=== PATIENT | female | born 1990 | race Caucasian/White ===

== ENCOUNTER → 2018-09-14 12:29 | Outpatient (CLI) | payer MEDICAID ==
[2011-06-10 06:39] VITALS: BMI 36.0
== END | disposition home or self-care (01) ==
LOC: D.LDO 12:29
DX: O26.893 Other specified pregnancy related conditions, third trimester (principal); Z3A.37 37 weeks gestation of pregnancy; R10.9 Unspecified abdominal pain

== ENCOUNTER → 2018-09-16 12:30 | Outpatient (CLI) | payer MEDICAID ==
[2011-06-10 06:39] VITALS: BMI 36.0
[~2018-09-16 12:30] MED LIST: BUPRENORPHINE HC8 MG SL; CYCLOBENZAPRINE10 MG; MOTRIN600 MG PO; ZOFRAN ODT4 MG/UDTAB PO
[2018-09-16 13:56] LABS: APPEARANCE CLEAR (CLEAR); BILIRUBIN NEGATIVE (NEGATIVE); COLOR STRAW (YELLOW); GLUCOSE NEGATIVE (NEGATIVE); KETONE NEGATIVE (NEGATIVE); NITRITE NEGATIVE (NEGATIVE); PROTEIN NEGATIVE (NEGATIVE); SPECIFIC GRAVITY 1.005 (1.005-1.020); UROBILINOGEN NORMAL (NORMAL)
[2018-09-16 13:58] LABS: BACTERIA MODERATE /hpf (NONE SEEN); RED CELLS - URINE RARE /hpf (0-5)
[2018-09-16 14:22] LABS: UDS - AMPHET NEGATIVE QUAL (NEGATIVE); UDS - BARB NEGATIVE QUAL (NEGATIVE); UDS - BENZO NEGATIVE QUAL (NEGATIVE); UDS - COCAINE NEGATIVE QUAL (NEGATIVE); UDS - OPIATE NEGATIVE QUAL (NEGATIVE); UDS - PCP NEGATIVE QUAL (NEGATIVE); UDS - THC POSITIVE QUAL (NEGATIVE)
[2018-09-22 11:01] VITALS: BMI 27.4
[2018-09-23 08:19] LABS: UDSC - AMPHET Negative ng/mL (Cutoff=1000); UDSC - BARB Negative ng/mL (Cutoff=300); UDSC - BENZO Negative ng/mL (Cutoff=300); UDSC - COC Negative ng/mL (Cutoff=300); UDSC - METH Negative ng/mL (Cutoff=300); UDSC - OPIATES Negative ng/mL (Cutoff=300); UDSC - PCP Negative ng/mL (Cutoff=25); UDSC - PROPOXY Negative ng/mL (Cutoff=300); UDSC - THC Positive (Cutoff=50)
== END | disposition home or self-care (01) ==
LOC: D.LDO 12:30
PROVIDERS: Obstetrics & Gynecology
DX: O26.893 Other specified pregnancy related conditions, third trimester (principal); Z3A.37 37 weeks gestation of pregnancy

== ENCOUNTER 2018-09-19 02:28 | Outpatient (CLI) | payer MEDICAID ==
[2011-06-10 06:39] VITALS: BMI 36.0
[2018-09-19 03:01] LABS: APPEARANCE CLEAR (CLEAR); BILIRUBIN NEGATIVE (NEGATIVE); COLOR STRAW (YELLOW); GLUCOSE NEGATIVE (NEGATIVE); KETONE NEGATIVE (NEGATIVE); NITRITE NEGATIVE (NEGATIVE); PROTEIN NEGATIVE (NEGATIVE); SPECIFIC GRAVITY 1.005 (1.005-1.020); UROBILINOGEN NORMAL (NORMAL)
[2018-09-19 03:04] LABS: UDS - AMPHET NEGATIVE QUAL (NEGATIVE); UDS - BARB NEGATIVE QUAL (NEGATIVE); UDS - BENZO NEGATIVE QUAL (NEGATIVE); UDS - COCAINE NEGATIVE QUAL (NEGATIVE); UDS - OPIATE NEGATIVE QUAL (NEGATIVE); UDS - PCP NEGATIVE QUAL (NEGATIVE); UDS - THC POSITIVE QUAL (NEGATIVE)
[2018-09-22 11:01] VITALS: BMI 27.4
== END 2018-09-19 05:33 | disposition home or self-care (01) ==
LOC: D.LDO 02:28
PROVIDERS: Obstetrics & Gynecology
DX: O26.893 Other specified pregnancy related conditions, third trimester (principal); Z3A.37 37 weeks gestation of pregnancy

== ENCOUNTER 2018-09-21 10:36 | Inpatient (IN) | payer MEDICAID ==
[~2018-09-21] VITALS: Ht 160 cm; Wt 70.3 kg
[2018-09-21] MEDS ORDERED: CYCLOBENZAPRINE10 MG (11:54)
[2018-09-21] MEDS ORDERED: BUPRENORPHINE HC8 MG SL (11:55)
[2018-09-21 11:56] VITALS: BP 123/66; BMI 27.5
[2018-09-21] MEDS ORDERED: ZOFRAN ODT4 MG/UDTAB PO (11:56)
[2018-09-21 12:08] LABS: HEMATOCRIT 36.1 % (36.0-48.0); HEMOGLOBIN 12.3 g/dL (12-16); MCH 29.6 pg (26.0-34.0); MCHC 34.1 g/dL (31.0-37.0); MEAN PLATELET VOLUME 10.5 fL (7.4-10.4); RBC 4.15 10x6/uL (4.00-5.40); RDW 14.7 % (11.5-14.5); WBC 8.5 10x3/uL (4.8-10.8)
[2018-09-21 12:38] LABS: UDS - AMPHET NEGATIVE QUAL (NEGATIVE); UDS - BARB NEGATIVE QUAL (NEGATIVE); UDS - BENZO NEGATIVE QUAL (NEGATIVE); UDS - COCAINE NEGATIVE QUAL (NEGATIVE); UDS - OPIATE NEGATIVE QUAL (NEGATIVE); UDS - PCP NEGATIVE QUAL (NEGATIVE); UDS - THC POSITIVE QUAL (NEGATIVE)
--- NOTE | 2018-09-21 21:20 | NUR ---
PATIENT TRANSFERRED TO ROOM 1273. ORIENTED TO ROOM AND CALL SYSTEM. DENIES ANY NEEDS OR CONCERNS.
--- NOTE | 2018-09-21 22:15 | NUR ---
PATIENT UP TO BATHROOM WITH STEADY GAIT. VOIDED MODERATED AMOUNT. STATES PAIN 4 OUT OF 10. DENIES ANY FURTHER NEEDS OR CONCERNS. PATIENT AMBULATED BACK TO BED WITH STEADY GAIT. BED IN LOWEST POSITION, SIDE RAILS UP X 2, C/L AND WATER WITHIN REACH. SIGNIFICANT OTHER AT BEDSIDE.
--- NOTE | 2018-09-21 23:00 | NUR ---
PATIENT UP TO BATHROOM WITH STEADY GAIT. VOIDED MODERATE AMOUNT. DENIES ANY NEEDS OR CONCERNS. BED IN LOWEST POSITION, SIDE RAILS UP X 2, C/L AND WATER WITHIN REACH.
--- NOTE | 2018-09-22 00:01 | NUR ---
PATIENT LYING QUIETLY IN BED HOLDING INFANT. DENIES ANY PAIN AT THIS TIME. DENIES ANY NEEDS OR CONCERNS. BED IN LOWEST POSTION, SIDE RAILS UP X 2, C/L AND WATER WITHIN REACH.
--- NOTE | 2018-09-22 02:00 | NUR ---
PATIENT LYING QUIETLY IN BED WITH EYES CLOSED. NO SIGNS OF DISTRESS NOTED. BED IN LOWEST POSITION, SIDE RAILS UP X 2, C/L AND WATER WITHIN REACH.
--- NOTE | 2018-09-22 04:08 | NUR ---
PATIENT LYING QUIETLY IN BED WITH EYES CLOSED. EASILY AROUSED. STATES PAIN 8 OUT OF 10. PRN NORCO 5/325 ADMINISTERED PO AT THIS TIME. VITAL SIGNS DONE. PATIENT DENIES ANY FURTHER NEEDS. BED IN LOWEST POSITION, SIDE RAILS UP X 2, C/L AND WATER WITHIN REACH. NO SIGNS OF DISTRESS NOTED.
[2018-09-22 04:09] VITALS: BP 110/53
--- NOTE | 2018-09-22 06:02 | NUR ---
PATIENT STATES PAIN 7 OUT OF 10. PRN MOTRIN 600 MG ADMINISTERED PO. PATIENT DENIES FURTHER NEEDS. BED IN LOWEST POSITION, SIDE RAILS UP X 2, C/L AND WATER WITHIN REACH.
[2018-09-22 06:32] LABS: BASOPHILS 0.1 % (0-2); EOSINOPHILS 0.8 % (0-7); HEMATOCRIT 37.6 % (36.0-48.0); HEMOGLOBIN 12.5 g/dL (12-16); IMMATURE GRANULOCYTES 0.3 % (0-5); LYMPHOCYTES 14.1 % (15-50); MCH 29.2 pg (26.0-34.0); MCHC 33.2 g/dL (31.0-37.0); MCV 87.9 fL (80.0-100.0); MEAN PLATELET VOLUME 10.7 fL (7.4-10.4); MONOCYTES 8.2 % (2-11); NEUTROPHILS 76.5 % (40-80); PLATELET COUNT 137 10x3/uL (130-400); RBC 4.28 10x6/uL (4.00-5.40)
[2018-09-22 06:38] LABS: WBC 13.6 10x3/uL (4.8-10.8)
[2018-09-22 07:36] LABS: RAPID PLASMA REAGIN Non Reactive (Non Reactive)
[2018-09-22 07:40] VITALS: BP 109/68
--- NOTE | 2018-09-22 07:41 | NUR ---
PT SITTING UP IN BED. COMPLETING PAPERWORK AND VISITS WITH SO. VSS. FUNDUS FIRM AT U/1. PT DENIES HEAVY BLEEDING OR PASSING CLOTS. SR UP X 2. CALL LIGHT IN REACH.
--- NOTE | 2018-09-22 07:42 | NUR ---
DR JEWELL VISITS WITH PT.
--- NOTE | 2018-09-22 08:31 | NUR ---
PT C/O ABDOMINAL CRAMPING AND REQUESTS PAIN MED. NORCO 5/325 GIVEN PO ORDERED. PT INSTRUCTED ON MED. VERBALIZES UNDERSTANDING.
--- NOTE | 2018-09-22 09:30 | NUR ---
PT AMBULATORY OFF UNIT.
--- NOTE | 2018-09-22 10:00 | NUR ---
PT IN BATHROOM AT THIS TIME. DENIES C/O OR NEEDS.
[2018-09-22 11:01] VITALS: Ht 160 cm; Wt 70.3 kg
--- NOTE | 2018-09-22 12:00 | NUR ---
PT AMBULATORY WITH FAMILY OFF UNIT.
--- NOTE | 2018-09-22 13:13 | NUR ---
THIS NURSE TO PT ROOM. SO IN ROOM WITH INFANT. STATES PATIENT WENT TO THE [facility].
[2018-09-22 13:53] VITALS: BP 122/63
--- NOTE | 2018-09-22 13:53 | NUR ---
PT SITTING UP IN BED. HOLDS WITH MUCH WARMTH SHOWN. VSS. DENIES HEAVY BLEEDING, PASSING CLOTS OR PROBLEMS VOIDING. DENIES NEEDS OR C/O.
--- NOTE | 2018-09-22 14:39 | NUR ---
PT AMBULATORY IN ROOM. BACK TO BED FOR ASSESSMENT. HRRR WITHOUT AUDIBLE MURMUR. BBS CLEAR. BS X 4. PT STATES PASSING GAS AND HAS BM TODAY. NEG HOMANS' SIGN. PPP. SLIGHT EDEMA NOTED TO BLE. FUNDUS FIRM AT U/1. RUBRA LOCHIA SMALL AMT. PT DENIES HEAVY BLEEDING OR PASSING CLOTS. VOICES NO NEEDS OR C/O.
--- NOTE | 2018-09-22 14:42 | NUR ---
PT C/O PAIN TO SL SITE. SITE CLEAR WITHOUT REDNESS, SWELLING OR DRAINAGE NOTED. DC'D WITH [facility] INTACT. PRESSURE BANDAGE TO SITE. PT SUNITHA WELL.
--- NOTE | 2018-09-22 15:20 | NUR ---
PT AT DESK, TEARFUL. STATES [facility] IS REQUIRING PT GO HOME FOR HOME VISIT [place]. REQUESTING TO BE DISCHARGED TO ALLOW PT TO GO HOME AT THIS TIME. WILL NOTIFY DR JEWELL.
--- NOTE | 2018-09-22 15:25 | NUR ---
DR JEWELL NOTIFIED OF PT REQUEST TO DISCHARGE NOW DUE TO REQUIRED HOME VISIT BY [facility]. ORDER RECEIVED.
[2018-09-22] MEDS ORDERED: MOTRIN600 MG PO (15:32)
--- NOTE | 2018-09-22 15:45 | NUR ---
PT GIVEN DISCHARGE INSTRUCTIONS. VERBALIZES UNDERSTANDING OF ALL INSTRUCTIONS. COPIES GIVEN TO PT. PT GIVEN RX FOR MOTRIN 600 MG. PT GIVEN TDAP 0.5 ML IM TO RIGHT DELTOID. BANDAID TO SITE. PT SUNITHA WELL.
--- NOTE | 2018-09-22 15:55 | NUR ---
PT GIVEN ROOMING IN POLICY. PT VERBALIZES UNDERSTANDING OF ROOMING IN STATUS. FORM EXPLAINED TO AND SIGNED BY PT. PT DISCHARGED VIA AMBULATORY WITH FAMILY OFF UNIT.
[2018-09-24 14:13] LABS: UDSC - AMPHET Negative ng/mL (Cutoff=1000); UDSC - BARB Negative ng/mL (Cutoff=300); UDSC - BENZO Negative ng/mL (Cutoff=300); UDSC - COC Negative ng/mL (Cutoff=300); UDSC - METH Negative ng/mL (Cutoff=300); UDSC - OPIATES Negative ng/mL (Cutoff=300); UDSC - PCP Negative ng/mL (Cutoff=25); UDSC - PROPOXY Negative ng/mL (Cutoff=300); UDSC - THC Positive (Cutoff=50)
== END 2018-09-22 15:55 | disposition home or self-care (01) | DRG 805 ==
LOC: D.LD 10:36
PROVIDERS: ADMIT Obstetrics & Gynecology
PROC: 10D07Z6 Extraction of Products of Conception, Vacuum, Via Natural or Artificial Opening (ICD-10-PCS; principal; 2018-09-21)
PROC: 0KQM0ZZ Repair Perineum Muscle, Open Approach (ICD-10-PCS; 2018-09-21)
PROC: 10907ZC Drainage of Amniotic Fluid, Therapeutic from Products of Conception, Via Natural or Artificial Opening (ICD-10-PCS; 2018-09-21)
DX: O99.334 Smoking (tobacco) complicating childbirth (principal); O34.33 Maternal care for cervical incompetence, third trimester; Z37.0 Single live birth; F19.20 Other psychoactive substance dependence, uncomplicated; Z3A.38 38 weeks gestation of pregnancy; O99.324 Drug use complicating childbirth; O70.1 Second degree perineal laceration during delivery